=== PATIENT | female | born 1965 | race Caucasian/White ===

== ENCOUNTER 2020-10-22 14:07 | Inpatient (IN) | payer BC ==
[~2020-10-22] VITALS: Ht 170.2 cm; Wt 102.7 kg
[2020-10-22 14:17] VITALS: BP 117/79
[2020-10-22 15:26] LABS: HEMATOCRIT 45.5 % (37.0-47.0); HEMOGLOBIN 15.2 gm/dL (12.0-15.0); MCH 28.2 pg (26.0-34.0); MCHC 33.4 g/dL (28.0-37.0); MCV 84.5 fL (80.0-100.0); PLATELET COUNT 138 thou/uL (150-400); RBC 5.39 mil/uL (4.20-5.00); RDW 13.8 % (10.5-14.5); WBC 2.8 thou/uL (4.0-11.0)
[2020-10-22 15:36] LABS: ANION GAP 11 mmol/L (7-16); BUN 14 mg/dL (7-18); CALCIUM 8.7 mg/dL (8.5-10.1); CHLORIDE 101 mmol/L (98-107); CO2 25 mmol/L (21-32); CREATININE 1.1 mg/dL (0.6-1.0); GLUCOSE 96 mg/dL (74-106); POTASSIUM 4.4 mmol/L (3.5-5.1); SODIUM 137 mmol/L (136-145)
[2020-10-22 15:45] LABS: ALBUMIN 2.8 g/dL (3.4-5.0); SGOT 48 U/L (15-37); SGPT 37 U/L (14-59); TOTAL BILIRUBIN 0.4 mg/dL (0.2-1.0); TOTAL PROTEIN 7.2 g/dL (6.4-8.2); TROPONIN-I <0.06 ng/mL (<0.06)
[2020-10-22 16:12] LABS: ABSOLUTE NEUTROPHILS 2.2 thou/uL (1.4-8.2)
[2020-10-22 16:13] LABS: LARGE PLATELETS OCCASIONAL
[2020-10-22 16:35] LABS: URINE BILIRUBIN 1+ (Negative); URINE BLOOD NEGATIVE (Negative); URINE CLARITY CLEAR; URINE COLOR YELLOW; URINE GLUCOSE-RANDOM* NEGATIVE (Negative); URINE KETONES 3+ (Negative); URINE LEUKOCYTES-REFLEX NEGATIVE (Negative); URINE NITRITE-REFLEX NEGATIVE (Negative); URINE PROTEIN (DIPSTICK) 1+ (Negative); URINE SPECIFIC GRAVITY 1.025 (1.005-1.035)
[2020-10-22 16:37] LABS: ICTOTEST (BILI CONFIRMATORY) Positive (Negative)
[2020-10-22 16:48] LABS: SQUAMOUS >10 Many /LPF (0-3)
[2020-10-22 16:52] LABS: CELLULAR CASTS 0-3 Few /LPF (None Seen); WBC CLUMPS Occasional (None Seen)
[2020-10-22 16:53] LABS: URINE RBC 1-2 Rare /HPF (NONE SEEN); URINE WBC-REFLEX 6-15 Few /HPF (0-5)
[2020-10-22 16:54] LABS: CRYSTALS None Seen /LPF (None Seen)
[2020-10-22 17:33] VITALS: BP 103/72
[2020-10-22 18:00] VITALS: BP 119/86
[2020-10-22 19:46] VITALS: BP 125/78
[2020-10-22 20:13] VITALS: BP 118/79
[2020-10-23 00:12] VITALS: BP 127/85
[2020-10-23 04:47] LABS: HEMATOCRIT 42.4 % (37.0-47.0); HEMOGLOBIN 13.9 gm/dL (12.0-15.0); MCH 28.2 pg (26.0-34.0); MCHC 32.9 g/dL (28.0-37.0); MCV 85.7 fL (80.0-100.0); RBC 4.95 mil/uL (4.20-5.00); RDW 13.5 % (10.5-14.5)
[2020-10-23 04:52] LABS: WBC 1.5 thou/uL (4.0-11.0)
[2020-10-23 05:01] LABS: ALBUMIN 2.4 g/dL (3.4-5.0); ANION GAP 12 mmol/L (7-16); BUN 18 mg/dL (7-18); CALCIUM 8.2 mg/dL (8.5-10.1); CHLORIDE 105 mmol/L (98-107); CO2 22 mmol/L (21-32); DIRECT BILIRUBIN < 0.1 mg/dL (<0.1-0.2); GLUCOSE 218 mg/dL (74-106); PHOSPHORUS 3.5 mg/dL (2.6-4.7); POTASSIUM 3.9 mmol/L (3.5-5.1); SGOT 36 U/L (15-37); SGPT 36 U/L (14-59); SODIUM 139 mmol/L (136-145); TOTAL BILIRUBIN 0.4 mg/dL (0.2-1.0); TOTAL PROTEIN 6.7 g/dL (6.4-8.2)
[2020-10-23 05:10] VITALS: BP 143/91
--- NOTE | 2020-10-23 05:30 | NUR ---
Arrived from ER around 1999. First dose of remdesivir given last night. Cont. on enhanced precaution , afebrile. O2 at 2L/NC with O2 sat in the low 90's upon arrival on the floor then upper 90's this am. Critical white count of 1.5 called to [employer] . Pt. c/o generalized fatigue and some weakness. Reported nausea,vomiting and diarrhea but none since arrival on the floor.
[2020-10-23 07:04] VITALS: BP 127/86
--- NOTE | 2020-10-23 07:35 | NUR ---
PT PROGRESSING TOWARDS D/C GOALS. VSS AFEBRILE THIS AM. T MAX 99.1 HRR SA-SR ON MONITOR. UNLABORED ON 2LNC. LUNGS SOUND CLEAR THIS AM. HEPARIN TITRATED PER PROTOCOL AND ADJUSTED WITH NEW CORRECT WT TODAY. PHARMACY NOTIFIED OF CORRECTED WT. RIGHT GROIN DRESSING REMAINS CLEAN DRY AND INTACT. NO HEMATOMA. BRUISE NOTED. NO BLEEDING NOTED. NO S/S DISTRESS. PT SLEPT THROUGHOUT MOST OF NIGHT. NO C/O PAIN.
[2020-10-23 15:03] VITALS: BP 132/89
--- NOTE | 2020-10-23 16:29 | NUR ---
assumed care of pt at 0700. pt aox4 in no acute distress. 2L NC. soa w/ activity. up ad padmini w/ steady gait. good appetite. reports diarrhea resolved. iv abx infusing per order. wcm.
[2020-10-23 20:19] VITALS: BP 116/72
[2020-10-24 04:55] VITALS: BP 120/68
--- NOTE | 2020-10-24 05:16 | NUR ---
LAC IV SITE REDRESSED DUE TO CANNULA NOT FLUSHING EFFECTIVELY. CONTINUED TO FOLLOW POC WITH REMDESIVIR. PT STATES NO N/V. FEVER FREE. PT ALSO STATES NOT HAVING MUCH OF AN APPETITE. 02 SATURATION ON 2L IS 90% AND ABOVE. ISOLATION PRECAUTIONS IN PLACE.
[2020-10-24 06:03] LABS: INR 1.05; PROTIME 11.4 Seconds (10.5-12.1)
[2020-10-24 06:23] LABS: ALBUMIN 2.5 g/dL (3.4-5.0); ANION GAP 11 mmol/L (7-16); BUN 21 mg/dL (7-18); CALCIUM 8.8 mg/dL (8.5-10.1); CHLORIDE 105 mmol/L (98-107); CO2 23 mmol/L (21-32); DIRECT BILIRUBIN < 0.1 mg/dL (<0.1-0.2); GLUCOSE 220 mg/dL (74-106); PHOSPHORUS 3.2 mg/dL (2.5-4.9); POTASSIUM 3.7 mmol/L (3.5-5.1); SGOT 27 U/L (15-37); SGPT 32 U/L (30-65); SODIUM 139 mmol/L (136-145); TOTAL BILIRUBIN 0.3 mg/dL (0.2-1.0); TOTAL PROTEIN 6.4 g/dL (6.4-8.2)
[2020-10-24 07:03] VITALS: BP 133/82
--- NOTE | 2020-10-24 08:35 | EKG ---
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
[2020-10-24 08:39] LABS: ABSOLUTE NEUTROPHILS 4.5 thou/uL (1.4-8.2); BASOPHILS 0.1 % (0.0-2.0); HEMOGLOBIN 14.3 gm/dL (12.0-15.0); LYMPHOCYTES 7.7 % (24.0-44.0); MCH 28.2 pg (26.0-34.0); MCHC 33.3 g/dL (28.0-37.0); MCV 84.7 fL (80.0-100.0); MONOCYTES 5.3 % (1.0-8.0); PLATELET COUNT 155 thou/uL (150-400); POLYS 86.9 % (36.0-66.0); RBC 5.07 mil/uL (4.20-5.00); RDW 13.7 % (10.5-14.5); WBC 5.2 thou/uL (4.0-11.0)
--- NOTE | 2020-10-24 09:07 | NUR ---
ASSESSMENT: CM REVIEWED CHART AND SPOKE WITH PATIENT VIA PHONE. PT WAS ADMITTED DUE TO SHORTNESS OF BREATH AND IS COVID POSITIVE. PT REMAINS IN ENHANCED ISOLATION DUE TO COVID 19. PT REPORTS THAT SHE LIVES AT HOME WITH HER IN A HOUSE. PT STATES HAVING NO STEPS TO USE TO GET INSIDE THE HOME OR ONCE INSIDE. PT REPORTS BEING FULLY INDEPENDENT WITH ADLS AND AMBULATION. PT REPORTS THAT SHE RECEIVED HER FIRST VACCINE FOR COVID 19 ON OCTOBER 12 AND GOT THE PFIZER VACCINE. PT REPORTS WORKING FROM HOME. PT STATES SHE IS FULLY INDEPENDENT WITH ADLS AND AMBULATION AND HAS NO DME. PT STATES HER PCP IS DR. PHOENIX LUJAN. CM DISCUSSED ROLE. PT REPORTS NO HISTORY OF HH OR SNF IN THE PAST. PT IS CURRENTLY ON 2L OXYGEN AND WILL REMAIN ON ANTIVIRAL AND CORTICOSTEROIDS AT THIS TIME. CM WILL CONTINUE TO FOLLOW TO ASSIST NEEDED.
[2020-10-24 16:18] VITALS: BP 128/73
--- NOTE | 2020-10-24 16:28 | NUR ---
ON-GOING ASSESSMENT: CM CONTACTED [facility] TRANSFER TEAM [phone] TO FOLLOW UP ON REFERRAL. CSOTTY SPOKE WITH TRANSFER TEAM WHO REPORTS THEY [place] [facility] 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 CM PROVIDED [facility] TRANSFER TEAM WITH BEDSIDE RN CONTACT INFORMATION. [facility] FORM IS ON THE CHART AND WILL NEED TO BE FINISHED AND FAXED TO [facility] FAX:[phone] AND THEN CONTACT [facility] AT [phone]. TRANSFER FORM IS ON CHART FOR BEDSIDE RN TO COMPLETE. CHART COPY WAS ALREADY ORDERED. AWAITING A DECISION AT THIS TIME AND WILL CONTACT BEDSIDE RN. PATIENT IS ALSO ON THE WAIT LIST AT [facility] WHO WILL ALSO CONTACT BEDSIDE RN IF BED IS AVAILABLE. CM WILL CONTINUE TO FOLLOW TO ASSIST NEEDED.
[2020-10-24 17:06] LABS: HIV ANTIBODY Non Reactive (Non Reactive)
--- NOTE | 2020-10-24 17:45 | NUR ---
ASSUMED PATIENT CARE AT 0700. A/O X4. TOLERATED ON 2L. UP AD PETER. SLOLWY TOWARDS POC GOALS.
[2020-10-24 19:47] VITALS: BP 114/62
--- NOTE | 2020-10-25 04:42 | NUR ---
ISOLATION PRECAUTIONS IN PLACE. FOLLOWING POC WITH REMDESIVIR POC AND 02 SATURATION STILL IN THE 90'S AT 2L. TELE SHOWS NSR. C DID NOT CALL OVERNIGHT ABOUT TRANSFER. PT UP AD PETER.
[2020-10-25 04:48] VITALS: BP 142/83
[2020-10-25 06:38] LABS: ALBUMIN 2.6 g/dL (3.4-5.0); DIRECT BILIRUBIN < 0.1 mg/dL (<0.1-0.2); SGOT 25 U/L (15-37); SGPT 34 U/L (30-65); TOTAL BILIRUBIN 0.3 mg/dL (0.2-1.0); TOTAL PROTEIN 6.7 g/dL (6.4-8.2)
[2020-10-25 06:59] VITALS: BP 126/80
--- NOTE | 2020-10-25 08:15 | NUR ---
ON-GOING ASSESSMENT: CM RECEIVED A CALL FROM [facility] STATING THEY ARE AT [facility] FOR COVID POSITIVE PATIENTS AND DO NOT HAVE A BED. CM CONTACTED PATIENT TO NOTIFY HER AND ASK OTHER PREFERENCE OF HOSPITAL. PT WANTS TO TRY [facility]. CM CONTACTED [facility] [phone] AND REQUESTED TO TALK WITH TRANSFER RN. CM SPOKE WITH [facility] TRANSFER RN WHO TOOK INFORMATION WELL CONTACT FOR ATTENDING AND STATES SHE WILL GET BACK WITH US. CM WILL CONTINUE TO FOLLOW.
--- NOTE | 2020-10-25 10:14 | NUR ---
ASSUMED PATIENT CARE AT 0700. A/O X4. ON 2L/NC. UP AD PETER. WILL TRANSFER TO [facility] AT 1030.
[2020-10-25] MEDS ORDERED: B-1100 MG PO (11:10)
[2020-10-25] MEDS ORDERED: SOLU-MEDRO40 MG/1 M2 IV (11:10)
[2020-10-25] MEDS ORDERED: ALBUTEROL2.5 MG/0.1 INH (11:10)
[2020-10-25] MEDS ORDERED: VEKLURY100 MG IV (11:10)
[2020-10-25] MEDS ORDERED: VITAMIN D325 MC3 PO (11:10)
[2020-10-25] MEDS ORDERED: TYLENOL325 M1 PO (11:10)
[2020-10-25] MEDS ORDERED: ROCEPHIN 11 GM/1001 IV (11:10)
== END 2020-10-25 11:18 | disposition short-term general hospital (02) | DRG 177 ==
LOC: ER 14:07 → 3W 19:47
PROVIDERS: Emergency Medicine; Nurse Practitioner Family; Specialist; ADMIT Hospitalist; ATTEND Hospitalist
PROC: XW033E5 Introduction of Remdesivir Anti-infective into Peripheral Vein, Percutaneous Approach, New Technology Group 5 (ICD-10-PCS; principal; 2020-10-22)
DX: U07.1 COVID-19 (principal); J96.01 Acute respiratory failure with hypoxia; J12.82 Pneumonia due to coronavirus disease 2019; N39.0 Urinary tract infection, site not specified; D72.829 Elevated white blood cell count, unspecified; Z79.899 Other long term (current) drug therapy
CPT/HCPCS: 10879